=== PATIENT | male | born 1965 | race Caucasian/White ===

== ENCOUNTER → 2017-08-15 | Outpatient (CLI) | payer OTHER ==
[~2017-08-15] MED LIST: FENO145T26 PO; LISI-725 PO; OMEG10007 PO; PRAV20TA PO
--- NOTE | 2017-08-15 08:20 | DIAGNOSTIC IMAGING REPORT ---
ABDOMEN COMPLETE (US) HISTORY: Pain. Nausea. E83.119. Hemochromatosis COMPARISON: None. FINDINGS: Pancreas: The pancreas demonstrates a normal echotexture. Liver: Unremarkable. Gallbladder: No gallbladder wall thickening. No gallstones. CBD: 3 mm Kidneys: No hydronephrosis. Spleen: Normal in appearance. Maximum dimension 9 cm. Aorta: Normal in caliber. IVC: Patent. IMPRESSION: Normal study The above report was generated using voice recognition software. It may contain grammatical, syntax or spelling errors. Electronically signed by: Lucius Lee M.D. 08/15/2017 8:19 AM Dictated Date/Time: 08/15/2017 8:17 AM
== END | disposition home or self-care (01) ==
LOC: C.ULTR 07:09
PROVIDERS: ATTEND Internal Medicine Hematology & Oncology
DX: E83.119 Hemochromatosis, unspecified (principal)